=== PATIENT | female | born 1995 | race American Indian/Alaskan Native ===

== ENCOUNTER 2018-05-25 15:11 | Emergency (ER) | payer OTHER ==
--- NOTE | 2018-05-25 15:49 | Emergency Department Report ---
Blank Doc - Documentation Documentation: This is a 23-year-old female that presents with pelvic pain. Stated is interm ittent. Curretnly denies any pelvic pain. Stated had 2 positive tests last week. Denies any vaginal bleeding. This initial assessment/diagnostic orders/clinical plan/treatment(s) is/are subject to change based on patient's health status, clinical progression and re- assessment by fellow clinical providers in the ED. Further treatment and workup at subsequent clinical providers discretion. Patient/guardians urged not to elope from the ED as their condition may be serious if not clinically assessed and managed. Initial orders include: 1- Patient sent to [facility] for further evaluation and treatment 2- UA 3- Labs
[2018-05-25 16:26] LABS: Basophils % (Auto) 0.8 % (0.0-1.8); Eosinophils # (Auto) 0.1 K/mm3 (0.0-0.4); Eosinophils % (Auto) 1.7 % (0.0-4.3); Hematocrit 38.7 % (30.3-42.9); Hemoglobin 12.6 gm/dl (10.1-14.3); Lymphocytes # (Auto) 2.1 K/mm3 (1.2-5.4); Mean Corpuscular HGB Conc 33 % (30-34); Mean Corpuscular Volume 72 fl (79-97); Monocytes # (Auto) 0.5 K/mm3 (0.0-0.8); Monocytes % (Auto) 8.6 % (0.0-7.3); Platelet Count 226 K/mm3 (140-440); Red Blood Count 5.35 M/mm3 (3.65-5.03)
[2018-05-25 17:05] LABS: BUN/Creatinine Ratio 18; Blood Urea Nitrogen 7 mg/dL (7-17); Calcium 9.1 mg/dL (8.4-10.2); Hemolysis Index 3
[2018-05-25 17:35] LABS: Bacteria,Urine 1+ /HPF (Negative); Bilirubin,Urine NEG (Negative); Blood,Urine NEG (Negative); Color,Urine Straw (Yellow); Mucus,Urine FEW /HPF; Protein,Urine <15 mg/dL mg/dL (Negative); Urobilinogen,Urine < 2.0 mg/dL (<2.0); WBC,Urine < 1.0 /HPF (0.0-6.0)
--- NOTE | 2018-05-25 19:38 | Emergency Department Report ---
ED Female HPI - General Chief complaint: Abdominal Pain Stated complaint: Time Seen by Provider: 05/25/18 15:47 Source: patient Mode of arrival: Ambulatory Limitations: No Limitations - History of Present Illness Initial comments: Pt is a 23 yo female who presents to the ED with "wanting to confirm that she is ." The patient states she took two at home tests which were both positive. She states her LNMP was 04/11/18. The patient states that in the morning she has suprapubic and lower back cramping intermittently but no pain. Pt states she has no pain at all currently. She denies any vaginal bleeding, vaginal discharge, urinary sx, fever, N/V, or any other symptoms. She states she does not remember who was her OB from her previous pregnancies. She has not been taking a vitamin. /P:3/A:0 - Related Data Previous Rx's Medication Instructions Recorded Last Taken Type Vit No.130/Iron/Folic 1 each PO DAILY #30 tablet 05/25/18 Unknown Rx [ Tablet] ED Review of Systems ROS: Stated complaint: Other details as noted in HPI Comment: All other systems reviewed and negative ED Past Medical Hx - Past Medical History Previous Medical History?: No - Surgical History Past Surgical History?: No - Social History Smoking Status: Former Smoker Substance Use Type: None - Medications Home Medications: Home Medications Medication Instructions Recorded Confirmed Last Taken Type Vit No.130/Iron/Folic 1 each PO DAILY #30 tablet 05/25/18 Unknown Rx [ Tablet] ED Physical Exam - General Limitations: No Limitations General appearance: alert, in no apparent distress - Head Head exam: Present: atraumatic, normocephalic - Respiratory Respiratory exam: Present: normal lung sounds bilaterally. Absent: respiratory distress, wheezes, rales, rhonchi, stridor, chest wall tenderness, accessory muscle use, decreased breath sounds, prolonged expiratory - Cardiovascular Cardiovascular Exam: Present: regular rate, normal rhythm, normal heart sounds. Absent: systolic murmur, rubs, gallop - GI/Abdominal GI/Abdominal exam: Present: soft, normal bowel sounds. Absent: distended, tenderness, guarding, rebound, rigid - Back Exam Back exam: Present: normal inspection. Absent: CVA tenderness (R), CVA tenderness (L) - Neurological Exam Neurological exam: Present: alert, oriented X3 - Psychiatric Psychiatric exam: Present: normal affect, normal mood ED Course Vital Signs 05/25/18 15:47 Temperature 98.2 F Pulse Rate 60 Respiratory 18 Rate Blood Pressure 136/70 O2 Sat by Pulse 100 Oximetry ED Medical Decision Making - Lab Data Result diagrams: 05/25/18 16:15 05/25/18 16:15 - Medical Decision Making Pt presents to the ED wanting to confirm her . No abdominal pain, no vaginal bleeding, no N/V, no fever, no urinary sx, no discharge, no complaints at all. exam is completely benign. Labs are WNL. [place] [id number]. Her LNMP was 04/11/18. She is unsure of her previous OB. Will refer pt to OB contract paralegal. Will start pt on vitamins and discussed to take daily. Ad vised to follow up with OB in the next 2-3 days. Return to the ED for any new symptoms. Critical care attestation.: If time is entered above; I have spent that time in minutes in the direct care of this critically ill patient, excluding procedure time. ED Disposition Clinical Impression: confirmed by positive blood test Qualifiers: Weeks of gestation: unspecified Qualified Code(s): Z34.90 - Encounter for supervision of normal , unspecified, unspecified trimester Disposition: DC-01 TO HOME OR SELFCARE Is pt being admited?: No Does the pt Need Aspirin: No Condition: Stable Instructions: (ED) Additional Instructions: Follow up with ENVIRONMENTAL ANALYST in the next 2-3 days. Take vitamins daily as prescribed. Do not smoke, drink, or use any drugs while . May take tylenol or motrin for any cramping. Return to the emergency room if any new or worsening symptoms. Prescriptions: Vit No.130/Iron/Folic [ Tablet] 1 each PO DAILY #30 tablet Referrals: ALEX DUDLEY MD [Primary Care Provider] - 2-3 Days [facility] [Provider Group] - 3-5 Days Time of Disposition: 19:39 Print Language: EGYPTIAN
[2018-05-25 19:53] VITALS: BP 123/69
== END 2018-05-25 19:54 | disposition home or self-care (01) ==
LOC: ED 15:11
DX: Z32.01 Encounter for pregnancy test, result positive (principal); Z87.891 Personal history of nicotine dependence
CPT/HCPCS: 36415; 80048; 81001; 84702; 85025; 99283

== ENCOUNTER 2018-11-23 13:31 | Emergency (ER) | payer SELFPAY ==
[2018-11-23 14:15] VITALS: BP 116/80
--- NOTE | 2018-11-23 14:16 | Event Note ---
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 Carrasquillo, advised to be seen in the ED PMHx HTN -labetolol no allergies to meds This initial assessment/diagnostic orders/clinical plan/treatment(s) is/are subject to change based on patients health status, clinical progression and re-assessment by fellow clinical providers in the ED. Further treatment and workup at subsequent clinical providers discretion. Patient/guardian urged not to elope from the ED as their condition may be serious if not clinically assessed and managed. Initial orders include: labs, ekg
[2018-11-23 15:19] LABS: Basophils % (Auto) 0.2 % (0.0-1.8); Eosinophils # (Auto) 0.1 K/mm3 (0.0-0.4); Eosinophils % (Auto) 1.1 % (0.0-4.3); Hematocrit 33.4 % (30.3-42.9); Hemoglobin 10.8 gm/dl (10.1-14.3); Lymphocytes # (Auto) 1.5 K/mm3 (1.2-5.4); Lymphocytes % (Auto) 22.8 % (13.4-35.0); Mean Corpuscular HGB Conc 32 % (30-34); Mean Corpuscular Volume 72 fl (79-97); Monocytes # (Auto) 0.5 K/mm3 (0.0-0.8); Platelet Count 247 K/mm3 (140-440); Red Blood Count 4.66 M/mm3 (3.65-5.03); Red Cell Distribution Width 15.2 % (13.2-15.2)
[2018-11-23 15:47] LABS: Alanine Aminotransferase 14 units/L (7-56); Albumin 3.4 g/dL (3.9-5); BUN/Creatinine Ratio 8; Blood Urea Nitrogen 3 mg/dL (7-17); Calcium 8.7 mg/dL (8.4-10.2); Hemolysis Index 29
== END 2018-11-23 21:30 | disposition left against medical advice (07) ==
LOC: ED 13:31
DX: R07.89 Other chest pain (principal); Z53.21 Procedure and treatment not carried out due to patient leaving prior to being seen by health care provider
CPT/HCPCS: 36415; 80053; 83690; 84484; 85025; 93005; 93010